=== PATIENT | male | born 1980 | race Caucasian/White ===

== ENCOUNTER → 2017-01-14 | Outpatient (CLI) | payer BC ==
[2016-08-12 07:00] VITALS: BP 126/91
[~2017-01-14] MED LIST: AMOX1TAB11 PO; DOCU-27 PO; IOHEXOL 180 MG/ML 10 ML VIAL. ONE; LOSA25TA4 PO; OXYC1TAB7 PO; PANT40GR PO; methylPREDNISolone ACETATE 40 MG/ML VIAL. ONE; methylPREDNISolone ACETATE 80 MG/ML VIAL. ONE
--- NOTE | 2017-01-15 03:35 | PAIN ---
DATE OF SERVICE: DIAGNOSES: Lumbar radiculopathy with lumbar degenerative disk disease. HISTORY OF PRESENT ILLNESS: The patient is a 36-year-old male who returns for followup, last seen in 2013. The patient underwent lumbar epidural steroid injection at that time with similar complaints that he has now, is low back and left leg with deep intermittent ache and pain increased with activity, walking, standing, across the low back into the left leg, posterior gluteus, posterior thigh, lateral thigh, anterior thigh, medial and lateral knee as well as the medial lower leg and posterior lower leg, worse with standing and walking, changes during the day, is a constant pain, aching, and cramping. The patient has had physical therapy for 4 visits so far, reports that it does help to a mild extent and he is still pursuing physical therapy as well as he has several appointments over the next few weeks. The patient it has not been wakening him from sleep at night, feels better with lying down or sitting, does not affect his bowel or bladder control or his ability to walk significantly. He has not used any assistive devices. The patient has had some epidural injections in the past with good results, reports his disability rate from 0 to 10, 10 being the worst, is 5 in all categories, family and home responsibilities, recreation, social activity, occupation, sexual behavior, self-care and life support activities. The patient did have an MRI scan dated 10/30/2016 showing L4-L5 left eccentric disk protrusion causing mass effect upon the descending left L5 nerve, otherwise without significant findings. PAST MEDICAL HISTORY: Significant for hypertension and chews tobacco. PREVIOUS SURGERIES: Appendectomy in 2016. ALLERGIES: The patient has no known drug allergies. CURRENT MEDICATIONS: Include losartan and Protonix. FAMILY HISTORY: Significant for diabetes. SOCIAL HISTORY: The patient does not smoke, but he uses vapor cigarettes, drinks alcohol only very rarely occasionally less than one time a month. Lives locally in [place], [place]. REVIEW OF SYSTEMS: The patient's review of systems is positive for those items mentioned in history of present illness. All systems were reviewed and otherwise negative. It is complete, full and well documented on the patient's chart. PHYSICAL EXAMINATION: VITAL SIGNS: Today, his blood pressure is 129/91, pulse 93, respirations are 18, temperature is 98.1 degrees Fahrenheit, height is 5 feet 5 inches, and weighs 218 pounds. GENERAL: The patient is awake, alert, oriented, appropriate, very pleasant demeanor. HEENT: Head shows normocephalic, atraumatic. Extraocular movements are intact and symmetrical. Oral cavity, mucous membranes are moist and pink. Dentition is intact. NECK: Shows anterior throat supple without palpable lymphadenopathy noted. Neck shows full rotational motion of cervical spine including extension and flexion without difficulty. BACK: Shows spine grossly midline, normal appearing thoracic kyphosis and lumbar lordotic curvature. No previous bruises, lesions, rashes or scars are noted. Lumbar paraspinous muscle shows some moderate tenderness with palpation, but only in the low lumbar distribution diffusely bilaterally, the patient shows full rotational motion without difficulty laterally as well as extension and flexion. No tenderness over the sacrum or sacroiliac regions. No tenderness over the spinous processes themselves. CHEST: Shows normal on inspection. Breath sounds are clear to auscultation bilaterally. HEART: Shows S1 and S2 clear. No murmurs are auscultated. ABDOMEN: Obese, soft, nontender, and nondistended. No palpable organomegaly. No rebound or guarding demonstrated. LOWER EXTREMITIES: Show deep tendon reflexes at 2+ in the patellar tendons, 1+ tendo calcaneus tendons are equal. Motor exam is strong with 5/5 dorsiflexion, extension, quadriceps and hamstring flexion and are symmetrical. Peripheral pulses are 2+ in posterior tibial and dorsalis pedis pulses. No peripheral edema is noted. No clubbing, no cyanosis. He does have some tattooing on the left lateral calf. Straight leg raise is noted to be positive on the left at about 45 degrees, only mildly tender with pain radiating to the left lateral thigh and decreased with knee flexion, right side is negative. The patient is able to stand, stand on his toes without difficulty or loss of balance, walks with a normal appearing gait, is able to do heel-to-toe walk as well without difficulty, not using any assistive devices such as canes or walkers to ambulate. IMPRESSION: 1. This is a 36-year-old male with long history of low back pain, left lower extremity pain in a radicular fashion. 2. MRI scan as noted. 3. History of hypertension. PLAN: Options were discussed with the patient including conservative medical management, physical therapy, interventional techniques. As he is doing physical therapy already, I would like to try interventional techniques as he had very good success with these in the past. We discussed lumbar epidural steroid injection using description as well as anatomical models to describe the procedure. Risks were then discussed including, but not limited to bleeding, infection, possibility of epidural hematoma, subsequent neurologic compromise, dural puncture, headaches, spinal cord and/or nerve damage, side effects of steroid medication and poor results regarding pain control. The patient understands and wishes to proceed. The patient will return to clinic in approximately 2 weeks for followup. He was counseled on return appointment, activity level and side effects to be aware of. DIAGNOSIS: Lumbar radiculopathy with lumbar degenerative disease. PROCEDURES: Lumbar epidural steroid injection in translaminar approach at L4-L5 level using C-arm fluoroscopic guidance under sterile prep and drape with local anesthesia. MEDICATIONS AND INJECTION: Depo-Medrol 120 mg with 10 mL of preservative-free normal saline and 2 mL isovue for contrast. CONDITION AT DISCHARGE: Stable. The patient tolerated procedure well, had no complications. KRANTHI OH MD DR: SARAH/yan JOB#: [id number] / [id number]
== END | disposition home or self-care (01) ==
LOC: PNCL 10:46
PROVIDERS: ATTEND Anesthesiology
DX: M51.16 Intervertebral disc disorders with radiculopathy, lumbar region (principal); I10 Essential (primary) hypertension; M19.90 Unspecified osteoarthritis, unspecified site; K21.9 Gastro-esophageal reflux disease without esophagitis; Z72.89 Other problems related to lifestyle; Z98.890 Other specified postprocedural states
CPT/HCPCS: 62323; J1030; J1040